=== PATIENT | male | born 1960 ===

== ENCOUNTER 2017-02-06 06:54 | Day surgery (SDC) | payer OTHER ==
[~2017-02-06 06:54] MED LIST: LIDOCAINE HCL 1% MPF SOL ONE; PROPOFOL 500 MG/50 ML EMU IV ONE
[2017-02-06 09:03] VITALS: PULSE 58
[2017-02-06 09:20] VITALS: BP 117/79; RESP 18; TEMP 97.6; O2SAT 96
== END 2017-02-06 09:33 | disposition home or self-care (01) ==
LOC: SURG 06:54
PROVIDERS: ATTEND Surgery
DX: Z12.11 Encounter for screening for malignant neoplasm of colon (principal); Z86.010 Personal history of colon polyps; D12.3 Benign neoplasm of transverse colon; K62.1 Rectal polyp
CPT/HCPCS: 45385; 99001; J2001; J2704

== ENCOUNTER 2017-07-11 12:37 | Day surgery (SDC) | payer OTHER ==
[2017-02-06 09:20] VITALS: O2SAT 96
[2017-07-11] MEDS ORDERED: BUPIVACAINE HCL 0.25% MPF 10 ML SOL INFIL ONE (13:17)
[2017-07-11] MEDS: DEXAMETHASONE SOD PHOS PF 10 MG/ML SOL IJ ONE ×2 (13:32→13:36)
[2017-07-11 13:52] VITALS: BP 143/77; PULSE 56; RESP 20; TEMP 97.9
== END 2017-07-11 14:00 | disposition home or self-care (01) ==
LOC: SURG 12:37
PROVIDERS: ATTEND Nurse Anesthetist, Certified Registered
DX: M54.5 Low back pain (principal); M54.16 Radiculopathy, lumbar region
CPT/HCPCS: 64483; 64484; 77003; J1100

== ENCOUNTER 2017-07-14 21:07 | Emergency (ER) | payer OTHER ==
[2017-07-14 21:20] VITALS: TEMP 98.8
[2017-07-14] MEDS ORDERED: ONDANSETRON 4 MG ODT ONE (21:37)
[2017-07-14] MEDS ORDERED: LORAZEPAM 0.5 MG TAB ONE (21:37)
[2017-07-14] MEDS ORDERED: LORAZEPAM 0.5 MG TAB PO ONE (21:39)
[2017-07-14] MEDS ORDERED: ONDANSETRON 4 MG ODT BU ONE (21:39)
[2017-07-14 22:10] LABS: ALBUMIN 3.7 gm/dl (3.4-5.0); ALT 86 IU/L (14-63); CALCIUM 8.6 mg/dl (8.5-10.1); GLOM FILT RATE 83 mL/min (>60); POTASSIUM 4.1 mMol/L (3.5-5.1); SODIUM 127 mMol/L (136-145)
[2017-07-14 22:48] VITALS: BP 159/77; PULSE 71; RESP 17; O2SAT 97
== END 2017-07-14 22:38 | disposition home or self-care (01) ==
LOC: ED 21:07
DX: F41.9 Anxiety disorder, unspecified (principal)
CPT/HCPCS: 36415; 80053; 84484; 99282; 99283

== ENCOUNTER 2017-08-21 13:56 | Day surgery (SDC) | payer OTHER ==
[2017-08-21 14:16] VITALS: O2SAT 96
[2017-08-21] MEDS ORDERED: DEXAMETHASONE SOD PHOS PF 10 MG/ML SOL IJ ONE (14:28)
[2017-08-21] MEDS ORDERED: BUPIVACAINE HCL 0.25% MPF 10 ML SOL INFIL ONE (14:28)
[2017-08-21 14:52] VITALS: BP 168/86; PULSE 66; RESP 18; TEMP 97.5
== END 2017-08-21 15:07 | disposition home or self-care (01) ==
LOC: SURG 13:56
PROVIDERS: ATTEND Nurse Anesthetist, Certified Registered
DX: M54.5 Low back pain (principal); M54.16 Radiculopathy, lumbar region
CPT/HCPCS: J1100

== ENCOUNTER 2018-01-14 10:57 | Day surgery (SDC) | payer OTHER ==
[2018-01-14] MEDS ORDERED: DIAZEPAM 5 MG TAB ONE (11:41)
[2018-01-14] MEDS ORDERED: BUPIVACAINE HCL 0.25% MPF 30 ML SOL INFIL ONE (11:46)
[2018-01-14] MEDS: DEXAMETHASONE SOD PHOS PF 10 MG/ML SOL IJ ONE ×4 (12:01→12:05)
[2018-01-14 12:22] VITALS: BP 130/75; PULSE 54; RESP 20; TEMP 98.1; O2SAT 95
== END 2018-01-14 12:34 | disposition home or self-care (01) ==
LOC: SURG 10:57
PROVIDERS: ATTEND Nurse Anesthetist, Certified Registered
DX: M51.17 Intervertebral disc disorders with radiculopathy, lumbosacral region (principal)
CPT/HCPCS: A9270-GY; J1100